=== PATIENT | female | born 1970 ===

== ENCOUNTER 2017-04-09 07:00 | Inpatient (IN) | payer OTHER ==
[~2017-04-09] VITALS: Ht 160 cm; Wt 63.5 kg
[2017-05-23] VITALS (15 sets, daily range): BP systolic 103–130; BP diastolic 62–86
[2017-05-23] MEDS ORDERED: ACETAMINOPHEN325 M1 ORAL (06:04)
[2017-05-23] MEDS ORDERED: Vancomycin 1gm inj IVPB ONE (06:27)
[2017-05-23] MEDS ORDERED: Thrombin 5000 units TOPIC ONE (06:27)
[2017-05-23] MEDS ORDERED: Heparin 5000 units/ml inj ONE (06:27)
[2017-05-23] MEDS ORDERED: Surgicel 4in x 8in TOPIC ONE (06:28)
[2017-05-23] MEDS ORDERED: Lidocaine 1% 10mg/ml/Epi 0.005mg/ml 30ml vial INJ ONE (06:28)
[2017-05-23] MEDS ORDERED: Bupivacaine 0.5% Inj 30 ml vial INJ ONE (06:28)
[2017-05-23] MEDS ORDERED: Bacitracin 50000 Units Vial ONE (06:28)
[2017-05-23] MEDS ORDERED: LR 1000ml 1,000 ML IVLG SCH (06:49)
--- NOTE | 2017-05-23 06:49 | Anethesia Preoperative Eval ---
Anesthesia Pre-op PMH/ROS General Date of Evaluation: May 23, 2017 Time of Evaluation: 07:01 Anesthesiologist: Demian ASA Score: ASA 2 Mallampati Score Class I : Soft palate, uvula, fauces, pillars visible Class II: Soft palate, uvula, fauces visible Class III: Soft palate, base of uvula visible Class IV: Only hard plate visible Mallampati Classification: Class II Surgeon: Eron Diagnosis: Back Pain Surgical Procedure: ALIF L4-5, L5-S1, PSF Anesthesia History: none Family History: no anesthesia problems Allergies: Coded Allergies: No Known Allergies (Unverified , 05/22/17) Medications: see eMAR Past Medical History Cardiovascular: Reports: HTN Hematology/Immune: Reports: other - Uterine CA PSxH Narrative: BERTA Anesthesia Pre-op Phys. Exam Physician Exam Last Vital Signs Date Time Temp Pulse Resp B/P (MAP) Pulse Ox O2 Delivery O2 Flow Rate FiO2 05/23/17 06:28 98.1 79 20 122/86 96 Room Air Constitutional: NAD Neurologic: CN 2-12 intact Cardiovascular: RRR Respiratory: CTA Gastrointestinal: S/NT/ND Airway Exam Mallampati Score: Class II MO: full ROM: full Teeth: intact Anesthesia Pre-op A/P Risk Assessment & Plan Assessment: ASA 2 Plan: GA, BIS, Glidescope Status Change Before Surgery: No Pre-Antibiotics Dru Grams Ancef IV Given Within 1 Hr of Incision: Yes Time Given: 07:26 Leodan Arciniega MD May 23, 2017 06:49
--- NOTE | 2017-05-23 06:51 | Immediate Post-Op Evaluation ---
Immediate Post-Op Evalulation Immediate Post-Op Evalulation Procedure: ALIF L4-5, L5-S1, PSF Date of Evaluation: May 23, 2017 Time of Evaluation: 12:02 IV Fluids: 1500 LR Blood Products: 0 Estimated Blood Loss: 50 Urinary Output: 600 Blood Pressure Systolic: 115 Blood Pressure Diastolic: 78 Pulse Rate: 100 Respiratory Rate: 16 O2 Sat by Pulse Oximetry: 100 Temperature (Fahrenheit): 97.6 Pain Score (1-10): 3 Nausea: No Vomiting: No Complications 0 Patient Status: awake, reacts, patent, extubated, none Hydration Status: adequate Dru Grams Ancef IV Given Within 1 Hr of Incision: Yes Time Given: 07:26 Leodan Arciniega MD May 23, 2017 06:51
[2017-05-23] MEDS ORDERED: NS Irrig 1000ml ONE (07:00)
[2017-05-23] MEDS ORDERED: Hydromorphone 0.5mg/0.5ml inj IVP PRN (07:00)
[2017-05-23] MEDS ORDERED: DiphenhydrAMINE 50mg/ml Inj IVP PRN (07:00)
[2017-05-23] MEDS ORDERED: Norco 7.5mg/325mg tab ORAL PRN (07:00)
[2017-05-23] MEDS ORDERED: fentaNYL 250mcg/5ml ONE (07:00)
[2017-05-23] MEDS ORDERED: Metoclopramide 10mg/2ml Inj IVP PRN (07:00)
[2017-05-23] MEDS ORDERED: ceFAZolin sod 1 GM in NS 55 ML IVPB ONE (07:00)
[2017-05-23] MEDS ORDERED: Meperidine 25mg/0.5ml Inj (FOR RIGORS ONLY) IV PRN (07:00)
[2017-05-23] MEDS ORDERED: Norco 5mg/325mg tab ORAL PRN (07:00)
[2017-05-23] MEDS ORDERED: LR 1000ml ONE (07:00)
[2017-05-23] MEDS ORDERED: fentaNYL 100 mcg/2 mL IV PRN (07:00)
[2017-05-23] MEDS ORDERED: Neostigmine 1mg/ml 10ml Inj ONE (07:00)
[2017-05-23] MEDS ORDERED: Midazolam 2mg/2ml Inj IVP PRN (07:00)
[2017-05-23] MEDS ORDERED: oxyCODONE HCL/Acetaminophen 5/325mg ORAL PRN (07:00)
[2017-05-23] MEDS ORDERED: Lidocaine 1% MPF 10mg/ml 5ml ONE (07:00)
[2017-05-23] MEDS ORDERED: Sterile Water Irrig 1000ml IRRIG ONE (07:00)
[2017-05-23] MEDS ORDERED: Ketorolac 30mg Inj IV PRN (07:00)
[2017-05-23] MEDS ORDERED: Zemuron 50mg/5ml Inj IV ONE (07:00)
[2017-05-23] MEDS ORDERED: Atropine Inj 1mg/10ml Syr IV PRN (07:00)
[2017-05-23] MEDS ORDERED: LORazepam Inj 2mg/ml 1ml IV PRN (07:00)
[2017-05-23] MEDS ORDERED: Propofol 1,000mg/ 100ml btl IV ONE (07:00)
[2017-05-23] MEDS ORDERED: Glycopyrrolate 0.2mg/ml 1ml Vial ONE (07:00)
[2017-05-23] MEDS ORDERED: Ketorolac 60mg Inj IV PRN (07:00)
[2017-05-23] MEDS ORDERED: Lidocaine 1% Plain 30 ml INJ ONE (07:00)
[2017-05-23] MEDS ORDERED: Dexamethasone 20mg/5ml IVP ONE (07:00)
--- NOTE | 2017-05-23 07:10 | Pre-Procedure Note/Attestation ---
Pre-Procedure Note/Attestation Complete Prior to Procedure Planned Procedure: not applicable Procedure Narrative: ALIF L4-5, L5=S1 Posterior pedicle screw instrumentation L4-L5-S1 Indications for Procedure Pre-Operative Diagnosis: Post Trauma Back Pain Attestation I attest that I discussed the nature of the procedure; its benefits; risks and complications; and alternatives (and the risks and benefits of such alternatives ), prior to the procedure, with the patient (or the patient's legal retail customer service representative). I attest that, if there was a reasonable possibility of needing a blood transfusion, the patient (or the patient's legal retail customer service representative) was given the [facility] standardized written summary, pursuant to the Nick Franky Blood Safety Act ([place] Health and Safety Code # 1645, as amended). I attest that I re-evaluated the patient just prior to the surgery and that there has been no change in the patient's H&P, except as documented below: MONSERRAT SHELL May 23, 2017 07:10
[2017-05-23] MEDS ORDERED: Acetaminophen (Non formulary) 100 ML IV SCH (07:30)
--- NOTE | 2017-05-23 11:26 | Brief Operative Note ---
Immediate Post Operative Note Operative Note Pre-op Diagnosis: Post Trauma Back Pain Procedure: Anterior L4-5, L5-S1: SSEP, Xray, Interbody device, fusion BMP internal Fixation , Correction Deformity, Scar Posterior SSEP, Pedicle Screw, Xray, Local Post-op Diagnosis: same as pre-op Findings: consistent w/pre-op dx studies Surgeon: Anterior: Eron Morrsi. Posterior Eron Sap Grc Security: Posterior Marycruz LOPEZ Anesthesiologist: Demian ODEN Anesthesia: general Specimen: none Complications: none Condition: stable Fluids: see anesthesia Estimated Blood Loss: minimal Drains: none Implant(s) used?: Yes MONSERRAT SHELL May 23, 2017 11:26
[2017-05-23] MEDS ORDERED: Naloxone 0.4mg/ml Inj IVP PRN ×2 (11:30→11:45)
[2017-05-23] MEDS ORDERED: HYDROmorphone 1mg/ml Carpuject SUBQ PRN ×2 (11:30→17:15)
[2017-05-23] MEDS ORDERED: Tylenol #3 tab (300mg/30mg) ORAL PRN (13:15)
[2017-05-23] MEDS ORDERED: traMADol 50mg tab ORAL PRN ×2 (13:15→13:30)
[2017-05-23] MEDS ORDERED: oxyCODONE 5mg IR tab ORAL PRN ×2 (13:15)
--- NOTE | 2017-05-23 13:46 | Diagnostic Imaging Report ---
Indication: Back pain Comparison: None Findings: Fluoroscopic views of the lumbar spine were obtained. Intraoperative imaging demonstrating a L4-S1 fusion with pedicle screws and fusion rods. L4-5 and L5-S1 discectomy and disc prostheses noted. Impression: Intraoperative imaging
[2017-05-23] MEDS ORDERED: PCA HYDROmorphone 1mg/ml 30 ML IV PRN ×3 (14:00)
[2017-05-23] MEDS: D5 1/2NS 1,000 ML IV SCH ×2 (14:01→21:24)
[2017-05-23] MEDS: ceFAZolin sod 1 GM in D5W 55 ML IV SCH ×2 (15:53→23:57)
[2017-05-23] MEDS ORDERED: Milk of Magnesia 30ml Ud ORAL PRN (17:30)
[2017-05-23] MEDS: Hydromorphone 0.5mg/0.5ml inj SUBQ PRN ×2 (17:51→21:22)
--- NOTE | 2017-05-23 22:30 | Operative Note - Dictated ---
DATE OF OPERATION: 05/23/2017 SURGEON: Emil Littlejohn, Ph.D., M.D. ANTERIOR VASCULAR SURGEON: Dr. Morris, please see separate dictation for anterior approach exposure/closure, posterior Dr. Littlejohn. COMPUTER FORENSICS EXAMINER: JOHN Burnett. ESTIMATED BLOOD LOSS: Minimal. COMPLICATIONS: None. POSTOPERATIVE CONDITION: Good/stable. DRAINS: None. SPECIMEN: None. OPERATIVE PROCEDURE: 1. Anterior L4-L5, L5-S1 interbody reconstruction, correction deformity, fusion, placement of bone morphogenic protein and synthetic device titanium, internal fixation, intraoperative fluoroscopy interpreted by surgeons and SSEP monitoring, operation through scar tissue. 2. Posterior pedicle screw instrumentation bilaterally at L4, S1. SSEP monitoring, fluoroscopic imaging interpreted by surgeon, vancomycin powder application, local anesthetic applied by surgeon 1% lidocaine with epinephrine. ANESTHESIOLOGIST: Leodan Arciniega M.D. ANESTHESIA: General with intubation. DESCRIPTION OF PROCEDURE: Anterior: Please see dictation, Dr. Morris with Dr. Littlejohn assist for anterior exposure and closure. Operation to scar tissue. L4-L5 was identified in the AP and lateral planes with fluoroscopic imaging and needle in place. Midline marked. Annulotomy performed under direct observation and high-power magnification with diskectomy 2, but not through the posterior longitudinal ligament. End plates denuded of cartilage end gaps to subchondral bone. Subchondral bone integrity maintained. Insertion of the appropriately dimensioned lordotic titanium/peek device, Aero. Internal fixation. Fixation excellent. Prosthesis incorporated in fibrin glue. Attention turned to the L5-S1 interval. Appropriately dimensioned device determined after annulotomy, followed with diskectomy 2, but not through the posterior longitudinal ligament and denuding off the end plates to subchondral bone without violation of subchondral bone. Implant placement with implant containing bone morphogenic protein for fusion. Correction deformity from kyphosis to lordosis. Internal fixation undertaken followed with incorporating the graft with fibrin glue. Wound irrigated with antibiotic-containing saline. After the anterior exposure and placement of bandage maintained in place with tape, the patient was carefully turned from the supine to the prone position onto a new operating table. All operating instruments were removed from the room and all new sterile equipment utilized. After appropriate position in the prone position, lumbodorsal spine was sterilely prepped. [place] placed into the subcutaneous tissue under sterile conditions with termination with fluoroscopic imaging for incision level placement. Levels marked, needles removed, back re-sterilely prepped and draped free in usual sterile fashion. A longitudinal midline incision was sharply placed over the appropriate intervals through dermis and epidermis. Electrocautery dissection was carried to the subcutaneous tissue. The level of the lumbodorsal fascia was incised right and left of midline over the respective intervals. Bilateral L4 and bilateral S1 pedicle instrumentation was undertaken with determination of level with fluoroscopic guidance and utilization of anatomy. A posterior cortex was breached with Midas Max bur dissection, followed with probing determination of length for screw tapping, physical determination of cortical wall integrity with a ball-tip probe, followed with screw insertion. SSEP monitoring, negative EMG activity anytime. Four twitches available by anesthesia. Screw stimulation 5 milliamps negative all four screws. Interconnecting rods positioned appropriately and torqued into position. Wound copiously irrigated with antibiotic-containing saline. Sequential reapproximation of the lumbodorsal fascia, subcutaneous tissue, dermis, and epidermis. Local anesthetic 1% lidocaine with epinephrine introduced in bilateral lateral aspects of the incision at the dermal/subcutaneous interval. A sterile bandage applied, maintained in place with tape. The patient carefully turned and positioned onto the transport bed where she was awakened, extubated in the operating room, and transported to postoperative recovery in good stable condition. Emil Littlejohn M.D. DR: Aggie JOB#: [id number] CC:
[2017-05-24] VITALS: BP 115/68
[2017-05-24] MEDS: Hydromorphone 0.5mg/0.5ml inj SUBQ PRN ×2 (03:26→14:50)
--- NOTE | 2017-05-24 03:45 | Operative Note - Dictated ---
DATE OF OPERATION: 05/23/2017 VASCULAR SURGEON: Jimenez Morris M.D. SPINE SURGEON: Emil Littlejohn M.D. PREOPERATIVE DIAGNOSIS: Degenerative disc disease. POSTOPERATIVE DIAGNOSIS: Degenerative disc disease. PROCEDURE PERFORMED: 1. Anterior retroperitoneal exposure of L4-5 vertebral interspace. 2. Anterior retroperitoneal exposure of L5-S1 vertebral interspace. INDICATIONS: The patient is a very pleasant woman, who is seen in my office prior to surgery. She has been scheduled for anterior fusion L4-5 and L5-S1 to the prior vertical midline incision for a THREAT ANALYST surgery. She had a hysterectomy as well which was done for uterine cancer. Because of this, it was thought to be a possible increased risk of retroperitoneal scar tissue from her surgery, the possibility of vascular injury, possible need for blood transfusion, deep venous thrombosis were explicitly discussed. DESCRIPTION OF FINDINGS: A previous lower vertical midline incision was used, a left retroperitoneal approach was developed without difficulty. However, in the retroperitoneum, there was moderate scarring with the iliac vessels. There was scar tissue adherent to the psoas. The ureter was also visualized and identified. It was adherent to the medial border of the left external iliac artery and therefore it was actually mobilized and retracted laterally with the iliac vessels to expose L5-S1. However, it was mobilized along with the iliac vessels towards the patient's right to expose L4-5. On completion, it is intact with good peristalsis in the ureter extending proximally and distally. There was no evidence of any urine leak. The peritoneum was also not violated and there was no vascular injury in palpable femoral and pedal pulses on completion. Blood loss of less than 100 mL. DESCRIPTION OF PROCEDURE: The patient was taken to the operative room, general anesthesia was used. IV antibiotics were given, abdomen prepped and draped. An appropriate time-out was taken. A vertical midline incision made infraumbilically. The anterior fascia incised longitudinally in the midline. A plane was then identified posterior to the left rectus abdominis and developed posterolaterally towards the patient's left. The retroperitoneal space entered below the arcuate line and the peritoneum and ureter mobilized and exposed. It was clear that the ureter was adherent to the iliac vessels for L5-S1 and therefore the peritoneum was actually mobilized off of this medially and the Omni retractor was set in place with retraction of the left iliac vessels and the ureter without tension towards the patient's left. Fluoroscopy used to confirm the appropriate level. Then, instrumentation was performed at L5-S1. Retractors were then repositioned above the iliac bifurcation. The iliac vessels and the ureter and the peritoneum were mobilized towards the patient's right. The iliolumbar veins identified and encircled using a 2-0 silk tie and then triply ligated proximally and distally with the L4 segmental vessels were also identified and ligated with vascular clips and divided. This allowed us to retract left iliac vessels towards the patient's right and exposed the anterior surface of L4-5. Once again, fluoroscopy used to confirm the appropriate level. Instrumentation performed at L4-5 dictated separately. On completion, the peritoneum and ureter intact and carefully examined. The iliac vessels were intact. Anterior fascia was closed using #1 PDS suture in running fashion. Skin and subcutaneous tissue was closed using 3-0 Vicryl and 4-0 Monocryl running subcuticular closure technique. ESTIMATED BLOOD LOSS: 100 mL. COMPLICATIONS: None. Jimenez Morris M.D. DR: MAXINE JOB#: [id number] CC: Nazia Jimenez M.D. ; Fax#: [phone]
[2017-05-24 04:00] VITALS: BP 111/66
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
[2017-05-24] MEDS: D5 1/2NS 1,000 ML IV SCH ×5 (04:59→20:30)
[2017-05-24] MEDS: ceFAZolin sod 1 GM in D5W 55 ML IV SCH (08:04)
[2017-05-24] MEDS: Docusate 100mg cap ORAL SCH ×2 (08:32→17:29)
[2017-05-24 08:48] VITALS: BP 96/54
[2017-05-24 12:00] VITALS: BP 107/61
[2017-05-24 16:00] VITALS: BP 116/64
--- NOTE | 2017-05-24 18:00 | Progress Note ---
DATE: 05/24/2017 ACUTE PAIN MANAGEMENT PHYSICIAN PROGRESS NOTE MEDICATIONS: Medication administration record reviewed. Medications include tramadol, Protonix, Zofran, Narcan, milk of magnesia, Dilaudid, [place], Colace, Benadryl, Cepacol, Soma, and Mylanta. LABORATORY STUDIES: No interval laboratory studies. VITAL SIGNS: Afebrile, pulse 79, respirations 16, blood pressure 111/66, and oxygen saturation 100% on supplemental oxygen. I spent over 60 minutes in consultation today. I saw the patient at the bedside with her , who interpreted Romansh and I discussed the case with the night nurse, RN, Tomás. After her extensive lumbar spine fusion surgery yesterday, the patient is progressing on schedule. She is not yet passing flatus, so she will remain n.p.o. except for medications and ice chips. She has had mild intermittent nausea, which has been well treated with the breakthrough Zofran. I will also add p.r.n. Phenergan as a second-line rescue antiemetic. The patient has received several doses of breakthrough Dilaudid in addition to her MARKETING DATABASE CONSULTANT unit, which has been working rather effectively. I will continue these primary analgesic agents for now. She did receive Soma as a muscle relaxant agent without any adverse side effects. I will continue this medication as well. The states that he already has medications available at an outpatient pharmacy ready for pickup, to be used for outpatient usage. Once the patient is more stabilized, the will leave the patient's bedside and pecan picker the medications from the pharmacy. The patient is neurologically grossly intact, moving all extremities x4 with 5/5 dorsiflexion and 5/5 plantar flexion of bilateral lower extremity. Rodriguez catheter is also in place. The patient has minimal bowel sounds, so I will continue her on IV fluids at the current rate of 125 mL an hour. The patient will remain on Protonix for GI ulcer prophylaxis. When the patient is able to tolerate oral medications, I have made available Ultram and [place] as oral agents. At the bedside, I did demonstrate proper use of incentive spirometer and I encouraged the patient to dose her pain medications appropriately so that she can put forth a solid effort with incentive spirometer to avoid postoperative pneumonia and atelectasis. Sequential compression pneumatic devices remain in place for deep venous thrombosis prophylaxis. Collin Melo M.D. DR: Kassandra JOB#: [id number] CC:
[2017-05-24] MEDS: PCA shift volume MISC SCH (19:25)
[2017-05-24] MEDS: Norco 10mg/325mg tab ORAL PRN (19:43)
[2017-05-24 20:00] VITALS: BP 109/64
[2017-05-24] MEDS ORDERED: D5 1/2NS 1000ml IV ONE (20:46)
[2017-05-25] MEDS: D5 1/2NS 1,000 ML IV SCH ×4 (01:01→22:11)
[2017-05-25 04:00] VITALS: BP 106/65
[2017-05-25] MEDS: PCA shift volume MISC SCH (07:10)
[2017-05-25 08:20] VITALS: BP 125/71
[2017-05-25] MEDS: Docusate 100mg cap ORAL SCH ×2 (08:33→17:03)
[2017-05-25] MEDS ORDERED: D5 1/2NS 1000ml IV ONE (09:00)
[2017-05-25] MEDS: Norco 10mg/325mg tab ORAL PRN (11:07)
[2017-05-25 12:00] VITALS: BP 110/73
--- NOTE | 2017-05-25 12:28 | 48 Hour Post Anesthesia Eval ---
Post Anesthesia Evaluation Procedure: ALIF L4-5, L5-S1, PSF Date of Evaluation: May 25, 2017 Time of Evaluation: 12:28 Blood Pressure Systolic: 125 0: 71 Pulse Rate: 90 Respiratory Rate: 14 Temperature (Fahrenheit): 99.2 O2 Sat by Pulse Oximetry: 99 Airway: patent Nausea: Yes Vomiting: No If pain is > 6 Comment: orchardist/pain guideliens Hydration Status: adequate Cardiopulmonary Status: stable Mental Status/LOC: patient returned to baseline Follow-up Care/Observations: per surgery Post-Anesthesia Complications: none Follow-up care needed: N/A JANINA HOLLOWAY CRNA May 25, 2017 12:28
[2017-05-25] MEDS: Hydromorphone 0.5mg/0.5ml inj SUBQ PRN ×2 (14:54→20:31)
[2017-05-25 16:00] VITALS: BP 121/84
--- NOTE | 2017-05-25 17:30 | Progress Note ---
DATE: 05/25/2017 ACUTE PAIN MANAGEMENT PHYSICIAN PROGRESS NOTE MEDICATIONS: Medication administration record reviewed. Medications include Mylanta, Soma, Cepacol, IV fluids, Benadryl, Colace, [place], Dilaudid, milk of magnesia, Narcan, Zofran, Protonix, Phenergan, and Ultram. LABORATORY STUDIES: No interval laboratory studies. OBJECTIVE: VITAL SIGNS: Within normal limits. Pulse 98, afebrile, respirations 16, blood pressure 106/65, and oxygen saturation 97% on room air. I spent over 60 minutes in consultation today. I saw the patient at the bedside with the nurse, KELSIE Hernandez from retail shift supervisor and the day shift nurse, KELSIE Pepe. I discussed the case with the surgeon, Dr. Littlejohn and the charge nurse, KELSIE Morillo. The patient's remains at the bedside for good social support. I asked the to drive to his outpatient pharmacy to see if he is able to brick picker the outpatient prescription for home medications, as this will be a limiting factor for the patient's discharge. The patient has been very compliant and ambulating with assistance. She did start passing positive flatus. Her Rodriguez catheter remains in place. The urine does appear to be somewhat concentrated, so I will increase the rate of the IV fluids from 125 to 150. Hopefully, when Dr. Littlejohn advances the patient's diet, she will have better oral intake and we will be able to reduce and even discontinue the IV fluids in the near future. The patient denies any nausea symptoms. She denies any shortness of breath or chest pain. Her pain levels have been well controlled using her DIAL LATHE OPERATOR unit. She also has been tolerating the breakthrough Dilaudid injection along with Soma and [place]. I will discontinue the DIAL LATHE OPERATOR after lunch today to encourage movement in and out of bed. We will continue supportive treatment and await for continued improvement and her diet tolerability along with ambulation. The patient has been compliant with her incentive spirometer after this extensive lumbar spine fusion surgery. The patient's mood is stable and she does not appear to be anxious or require any anxiolytics at this time. Collin Melo M.D. DR: LETTY JOB#: [id number] CC:
[2017-05-25 20:46] VITALS: BP 123/86
[2017-05-26] VITALS: BP 113/68
[2017-05-26] MEDS: Hydromorphone 0.5mg/0.5ml inj SUBQ PRN ×3 (00:40→08:14)
[2017-05-26 04:21] VITALS: BP 123/75
[2017-05-26 07:35] VITALS: BP 133/89
[2017-05-26] MEDS: Docusate 100mg cap ORAL SCH (08:11)
[2017-05-26] MEDS: D5 1/2NS 1,000 ML IV SCH (08:15)
[2017-05-26] MEDS: Norco 10mg/325mg tab ORAL PRN (11:45)
[2017-05-26 12:00] VITALS: BP 132/90
--- NOTE | 2017-05-27 09:34 | Diagnostic Imaging Report ---
APPROVED REPORT CPT Code: 98179 Present Symptoms Lower Extremity Pain: Bilateral BILATERAL: Imaging reveals a patent deep venous system bilaterally. There is no evidence of thrombus within the femoral, popliteal or tibial segments. The greater saphenous veins are also within normal limits. Doppler indicates normal spontaneous flow within these segments.
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
== END 2017-05-26 15:10 | disposition home or self-care (01) | DRG 460 ==
LOC: SDSOVERFLO 05-23 05:11 → 3E 05-23 13:41
PROC: 0SG30A0 Fusion of Lumbosacral Joint with Interbody Fusion Device, Anterior Approach, Anterior Column, Open Approach (ICD-10-PCS; principal; 2017-05-23 07:00)
PROC: 3E0U0GB Introduction of Recombinant Bone Morphogenetic Protein into Joints, Open Approach (ICD-10-PCS; principal; 2017-05-23 07:00)
PROC: 0SB20ZZ Excision of Lumbar Vertebral Disc, Open Approach (ICD-10-PCS; principal; 2017-05-23 07:00)
PROC: 0SG00A0 Fusion of Lumbar Vertebral Joint with Interbody Fusion Device, Anterior Approach, Anterior Column, Open Approach (ICD-10-PCS; principal; 2017-05-23 07:00)
PROC: 0SB40ZZ Excision of Lumbosacral Disc, Open Approach (ICD-10-PCS; principal; 2017-05-23 07:00)
DX: M51.36 Other intervertebral disc degeneration, lumbar region (principal); E66.9 Obesity, unspecified; M53.2X6 Spinal instabilities, lumbar region; Z85.42 Personal history of malignant neoplasm of other parts of uterus; V89.2XXA Person injured in unspecified motor-vehicle accident, traffic, initial encounter; Z90.710 Acquired absence of both cervix and uterus; G89.18 Other acute postprocedural pain
CPT/HCPCS: 36415; 72020; 76001; 86850; 86900; 86901; 87081; 93970; 94003; 94150; J2180; J2405; J2710